=== PATIENT | female | born 1980 | race Caucasian/White ===

== ENCOUNTER → 2023-12-21 14:34 | Outpatient (REF) | payer BC, SELFPAY | LOC: WDC 14:34 | PROVIDERS: ATTENDING PHYSICIAN Student in an Organized Health Care Education/Training Program | DX: Z12.31 Encounter for screening mammogram for malignant neoplasm of breast (principal) | CPT/HCPCS: 77063; 77067 ==

== ENCOUNTER → 2024-01-21 12:41 | Outpatient (REF) | payer BC, SELFPAY ==
[2024-01-21 18:51] LABS: Urine Albumin Negative (Neg - Trace); Urine Bilirubin Negative (Negative); Urine Character Clear (Clear); Urine Color Yellow; Urine Glucose Negative (Negative); Urine Ketone Negative (Negative); Urine Leukocyte Negative (Negative); Urine Nitrite Negative (Negative); Urine Occult Blood Negative (Negative); Urine Specific Gravity 1.015 (<1.030); Urine Urobilinogen Negative (Neg - 1+)
== END ==
LOC: CLAB 12:41
PROVIDERS: ATTENDING PHYSICIAN Physician Assistant Medical
DX: R30.0 Dysuria (principal)
CPT/HCPCS: 81003; 87086

== ENCOUNTER → 2024-03-12 13:19 | Outpatient (REF) | payer BC, SELFPAY | LOC: RAD 13:19 | PROVIDERS: ATTENDING PHYSICIAN Nurse Practitioner Adult Health; FAMILY PHYSICIAN Student in an Organized Health Care Education/Training Program | DX: T83.32XA Displacement of intrauterine contraceptive device, initial encounter (principal) | CPT/HCPCS: 76830; 76856 ==

== ENCOUNTER 2024-06-19 06:50 | Outpatient (RCR) | payer BC, SELFPAY | END 2024-06-19 23:59 | disposition home or self-care (01) | LOC: RPT 06:50 | PROVIDERS: ATTENDING PHYSICIAN Obstetrics & Gynecology; FAMILY PHYSICIAN Student in an Organized Health Care Education/Training Program | DX: R10.2 Pelvic and perineal pain (principal); M62.89 Other specified disorders of muscle; N94.12 Deep dyspareunia; K59.00 Constipation, unspecified; Z73.6 Limitation of activities due to disability | CPT/HCPCS: 97163; 97530 ==

== ENCOUNTER 2024-07-22 10:01 | Outpatient (RCR) | payer BC, SELFPAY | END 2024-07-22 23:59 | disposition home or self-care (01) | LOC: RPT 10:01 | PROVIDERS: ATTENDING PHYSICIAN Obstetrics & Gynecology; FAMILY PHYSICIAN Student in an Organized Health Care Education/Training Program | DX: M62.89 Other specified disorders of muscle (principal); R10.2 Pelvic and perineal pain; Z73.6 Limitation of activities due to disability | CPT/HCPCS: 97110; 97140; 97530 ==

== ENCOUNTER 2024-08-05 10:01 | Outpatient (RCR) | payer BC, SELFPAY | END 2024-08-05 23:59 | disposition home or self-care (01) | LOC: RPT 10:01 | PROVIDERS: ATTENDING PHYSICIAN Obstetrics & Gynecology; FAMILY PHYSICIAN Student in an Organized Health Care Education/Training Program | DX: M62.89 Other specified disorders of muscle (principal); R10.2 Pelvic and perineal pain; Z73.6 Limitation of activities due to disability; N94.12 Deep dyspareunia; K59.00 Constipation, unspecified; N32.81 Overactive bladder | CPT/HCPCS: 97112; 97140; 97530 ==

== ENCOUNTER 2024-09-12 10:03 | Outpatient (RCR) | payer BC, SELFPAY | END 2024-09-12 23:59 | disposition home or self-care (01) | LOC: RPT 10:03 | PROVIDERS: ATTENDING PHYSICIAN Obstetrics & Gynecology; FAMILY PHYSICIAN Student in an Organized Health Care Education/Training Program | DX: M62.89 Other specified disorders of muscle (principal); R10.2 Pelvic and perineal pain; Z73.6 Limitation of activities due to disability; N94.12 Deep dyspareunia; K59.00 Constipation, unspecified; N32.81 Overactive bladder | CPT/HCPCS: 97014; 97112; 97140; 97530 ==

== ENCOUNTER 2024-10-17 09:59 | Outpatient (RCR) | payer BC, SELFPAY | END 2024-10-17 23:59 | disposition home or self-care (01) | LOC: RPT 09:59 | PROVIDERS: ATTENDING PHYSICIAN Obstetrics & Gynecology; FAMILY PHYSICIAN Student in an Organized Health Care Education/Training Program | DX: M62.89 Other specified disorders of muscle (principal); R10.2 Pelvic and perineal pain; Z73.6 Limitation of activities due to disability; N94.12 Deep dyspareunia; K59.00 Constipation, unspecified; N32.81 Overactive bladder | CPT/HCPCS: 97140; 97530 ==

== ENCOUNTER → 2024-12-22 16:01 | Outpatient (REF) | payer BC, SELFPAY | LOC: WDC 16:01 | PROVIDERS: ATTENDING PHYSICIAN Nurse Practitioner Adult Health; FAMILY PHYSICIAN Student in an Organized Health Care Education/Training Program | DX: Z12.31 Encounter for screening mammogram for malignant neoplasm of breast (principal) | CPT/HCPCS: 77063; 77067 ==

== ENCOUNTER → 2024-12-24 09:06 | Outpatient (REF) | payer BC, SELFPAY ==
[2024-12-24 10:59] LABS: Hematocrit 43.5 % (37.0-47.0); Hemoglobin 14.4 g/dL (12.0-16.0); Mean Corp Hgb Conc. 33.1 g/dL (33.0-37.0); Mean Corpuscular Volume 97.8 fL (81.0-99.0); Nucleated Red Blood Cells % 0 %; Platelet Count 286 10^3/uL (130-400); Red Cell Dist. Width 12.4 % (11.5-14.5)
[2024-12-24 11:17] LABS: ALT (SGPT) 24 U/L (0-35); AST (SGOT) 27 U/L (14-36); Albumin 4.6 g/dl (3.5-5.0); Alkaline Phosphatase 61 U/L (38-126); Blood Urea Nitrogen 17 mg/dl (7-17); Calcium 9.6 mg/dl (8.4-10.2); Carbon Dioxide 27 mmol/L (22-30); Chloride 103 mmol/L (98-107); Glucose 93 mg/dl (70-99); HDL Cholesterol 75 mg/dl; LDL Cholesterol, Calculated 160 mg/dl; Potassium 4.7 mmol/L (3.5-5.1); Sodium 137 mmol/L (135-145); Total Protein 7.1 g/dl (6.3-8.2); Very Low Density Lipoprotein 17 mg/dl (0-30); eGFR > 60.00
[2024-12-24 11:44] LABS: TSH 0.79 uIU/ml (0.47-4.68)
== END ==
LOC: REG 09:06
PROVIDERS: ATTENDING PHYSICIAN Internal Medicine; FAMILY PHYSICIAN Student in an Organized Health Care Education/Training Program
DX: Z00.00 Encounter for general adult medical examination without abnormal findings (principal); E78.00 Pure hypercholesterolemia, unspecified
CPT/HCPCS: 36415; 80053; 80061; 84443; 85025